=== PATIENT | female | born 1990 | race Caucasian/White ===

== ENCOUNTER 2016-10-13 19:53 | Inpatient (IN) | payer OTHER ==
[~2016-10-13] VITALS: Ht 170.2 cm; Wt 143.2 kg
[2016-10-13 21:10] LABS: BASOPHIL % 0.6 % (0-2)
[2016-10-13 21:25] LABS: ALBUMIN 4.1 g/dL (3.4-5.0); BILIRUBIN TOTAL 0.6 mg/dL (0.20-1.00); CALCIUM 8.8 mg/dL (8.5-10.1); CREATININE SERUM 1.2 mg/dL (0.6-1.0); POTASSIUM SERUM 4.5 mmol/L (3.5-5.1)
[2016-10-13 21:27] LABS: TOTAL PROTEIN, SERUM 9.1 g/dL (6.4-8.2)
[2016-10-13 21:29] LABS: PLATELET COUNT 495 x10^3mcL (130-400); RED CELL DISTRIBUTION WIDTH 14.7 % (11.5-14.5)
[2016-10-13 21:36] LABS: CARBON DIOXIDE 8.8 mmol/L (21-32)
[2016-10-13 23:21] LABS: CALCIUM 8.2 mg/dL (8.5-10.1); CHLORIDE SERUM 104 mmol/L (98-107); GFR1 > 60 mL/min; GLUCOSE SERUM 227 mg/dL (74-106); POTASSIUM SERUM 4.4 mmol/L (3.5-5.1); SODIUM SERUM 141 mmol/L (136-145)
[2016-10-13] MEDS ORDERED: METFORMIN HCL750 MG (23:38)
[2016-10-13] MEDS ORDERED: METFORMIN HCL750 MG PO (23:39)
[2016-10-13] MEDS ORDERED: INVOKANA100 MG (23:39)
[2016-10-13] MEDS ORDERED: JANUVIA100 M1 (23:40)
[2016-10-13 23:59] LABS: MAGNESIUM 2.1 mg/dL (1.8-2.4); PHOSPHOROUS 5.1 mg/dL (2.5-4.9)
[2016-10-14] VITALS (16 sets, daily range): BP systolic 116–155; BP diastolic 51–88
[2016-10-14] LABS: CHOLESTEROL 236 mg/dL (<200); CHOLESTEROL/HDL RATIO 9.8; HDL CHOLESTEROL 24 mg/dL (40-60); TRIGLYCERIDES 1109 mg/dL (<150)
[2016-10-14 00:04] LABS: FREE T4 1.15 ng/dL (0.76-1.46); FREE THYROXINE INDEX 2.8 ug/dL (1.4-4.5); T4(THYROXINE) 8.5 ug/dL (4.7-13.3)
[2016-10-14 00:17] LABS: T3 TOTAL 0.93 ng/mL
[2016-10-14] MEDS ORDERED: INVOKANA300 MG PO (00:17)
[2016-10-14] MEDS ORDERED: GOOD SENSE OMEP20 MG PO (00:17)
[2016-10-14] MEDS ORDERED: METFORMIN HCL850 MG PO (00:19)
[2016-10-14] MEDS ORDERED: JANUVIA100 M1 (00:19)
[2016-10-14] MEDS ORDERED: JANUVIA100 M1 PO (00:20)
[2016-10-14 00:32] LABS: AMPHETAMINE QUAL UR NONE DETECTED (NEG <=1000)
[2016-10-14 05:14] LABS: RED CELL DISTRIBUTION WIDTH 14.5 % (11.5-14.5)
[2016-10-14 05:16] LABS: PLATELET COUNT 542 x10^3mcL (130-400)
[2016-10-14 05:23] LABS: CALCIUM 7.4 mg/dL (8.5-10.1); CHLORIDE SERUM 110 mmol/L (98-107); CREATININE SERUM 1.1 mg/dL (0.6-1.0); GFR1 > 60 mL/min; GLUCOSE SERUM 353 mg/dL (74-106); MAGNESIUM 2.2 mg/dL (1.8-2.4); PHOSPHOROUS 5.5 mg/dL (2.5-4.9); POTASSIUM SERUM 4.5 mmol/L (3.5-5.1); SODIUM SERUM 147 mmol/L (136-145)
[2016-10-14 05:42] LABS: BAND NEUTROPHIL 2 % (0-10); METAMYELOCTE 6 % (0-2); MONOCYTE 2 % (0-7); MYELOCYTE 1 % (0-2); SEGMENTED NEUTROPHILS 71 % (37-75)
[2016-10-14 05:44] LABS: rbc morphology (normal/abnorm) NORMAL (NORMAL)
[2016-10-14 05:47] LABS: PLATELET MORPHOLOGY FEW LARGE PLATELET
[2016-10-14 06:05] LABS: microscopic required? YES; urine erythrocyte 1+ (NEGATIVE)
[2016-10-14 08:47] LABS: CALCIUM 8.3 mg/dL (8.5-10.1); CREATININE SERUM 1.3 mg/dL (0.6-1.0); POTASSIUM SERUM 3.2 mmol/L (3.5-5.1)
[2016-10-14 09:06] LABS: CARBON DIOXIDE 9.2 mmol/L (21-32)
[2016-10-14 12:17] LABS: CALCIUM 8.1 mg/dL (8.5-10.1); CARBON DIOXIDE 13.6 mmol/L (21-32); CREATININE SERUM 1.5 mg/dL (0.6-1.0); POTASSIUM SERUM 3.1 mmol/L (3.5-5.1)
[2016-10-14 16:43] LABS: MAGNESIUM 1.8 mg/dL (1.8-2.4)
[2016-10-14 16:53] LABS: CALCIUM 8.3 mg/dL (8.5-10.1); CARBON DIOXIDE 16.8 mmol/L (21-32); CREATININE SERUM 1.4 mg/dL (0.6-1.0)
[2016-10-14 16:55] LABS: POTASSIUM SERUM 2.9 mmol/L (3.5-5.1)
[2016-10-14 17:04] LABS: PHOSPHOROUS 0.6 mg/dL (2.5-4.9)
[2016-10-14 21:29] LABS: CALCIUM 8.5 mg/dL (8.5-10.1); CARBON DIOXIDE 20.6 mmol/L (21-32); CREATININE SERUM 1.3 mg/dL (0.6-1.0); POTASSIUM SERUM 5.5 mmol/L (3.5-5.1)
[2016-10-14 21:32] LABS: MAGNESIUM 1.8 mg/dL (1.8-2.4); PHOSPHOROUS 1.2 mg/dL (2.5-4.9)
[2016-10-15] VITALS (17 sets, daily range): BP systolic 102–168; BP diastolic 49–104
[2016-10-15 01:26] LABS: CALCIUM 8.6 mg/dL (8.5-10.1); CARBON DIOXIDE 20.7 mmol/L (21-32); CREATININE SERUM 1.2 mg/dL (0.6-1.0); MAGNESIUM 1.8 mg/dL (1.8-2.4); PHOSPHOROUS 1.6 mg/dL (2.5-4.9)
[2016-10-15 01:28] LABS: POTASSIUM SERUM 2.8 mmol/L (3.5-5.1)
[2016-10-15 05:06] LABS: BASOPHIL % 0.6 % (0-2); PLATELET COUNT 282 x10^3mcL (130-400)
[2016-10-15 05:08] LABS: CALCIUM 8.6 mg/dL (8.5-10.1); CARBON DIOXIDE 23.4 mmol/L (21-32); CREATININE SERUM 1.2 mg/dL (0.6-1.0); MAGNESIUM 1.8 mg/dL (1.8-2.4); PHOSPHOROUS 1.6 mg/dL (2.5-4.9); POTASSIUM SERUM 3.4 mmol/L (3.5-5.1)
[2016-10-15 05:11] LABS: RED CELL DISTRIBUTION WIDTH 14.6 % (11.5-14.5)
[2016-10-15 08:29] LABS: CALCIUM 8.6 mg/dL (8.5-10.1); CARBON DIOXIDE 19.5 mmol/L (21-32); CHLORIDE SERUM 115 mmol/L (98-107); CREATININE SERUM 1.1 mg/dL (0.6-1.0); GFR1 > 60 mL/min; GLUCOSE SERUM 226 mg/dL (74-106); MAGNESIUM 1.8 mg/dL (1.8-2.4); POTASSIUM SERUM 3.5 mmol/L (3.5-5.1); SODIUM SERUM 150 mmol/L (136-145)
[2016-10-15 12:46] LABS: CALCIUM 8.6 mg/dL (8.5-10.1); CARBON DIOXIDE 22.6 mmol/L (21-32); CREATININE SERUM 1.2 mg/dL (0.6-1.0); MAGNESIUM 1.9 mg/dL (1.8-2.4); PHOSPHOROUS 1.3 mg/dL (2.5-4.9); POTASSIUM SERUM 3.2 mmol/L (3.5-5.1)
[2016-10-15 16:21] LABS: CALCIUM 8.6 mg/dL (8.5-10.1); CARBON DIOXIDE 20.7 mmol/L (21-32); CHLORIDE SERUM 116 mmol/L (98-107); CREATININE SERUM 1.1 mg/dL (0.6-1.0); GFR1 > 60 mL/min; GLUCOSE SERUM 217 mg/dL (74-106); MAGNESIUM 1.9 mg/dL (1.8-2.4); PHOSPHOROUS 2.6 mg/dL (2.5-4.9); POTASSIUM SERUM 3.4 mmol/L (3.5-5.1); SODIUM SERUM 151 mmol/L (136-145)
[2016-10-15 20:42] LABS: CALCIUM 8.3 mg/dL (8.5-10.1); CARBON DIOXIDE 21.4 mmol/L (21-32); CHLORIDE SERUM 117 mmol/L (98-107); CREATININE SERUM 1.1 mg/dL (0.6-1.0); GFR1 > 60 mL/min; GLUCOSE SERUM 184 mg/dL (74-106); MAGNESIUM 1.8 mg/dL (1.8-2.4); PHOSPHOROUS 1.6 mg/dL (2.5-4.9); POTASSIUM SERUM 3.5 mmol/L (3.5-5.1); SODIUM SERUM 152 mmol/L (136-145)
[2016-10-16] VITALS (13 sets, daily range): BP systolic 127–170; BP diastolic 66–91; Ht 170.2 cm; Wt 143.2 kg
[2016-10-16 00:27] LABS: CALCIUM 8.6 mg/dL (8.5-10.1); CARBON DIOXIDE 26.3 mmol/L (21-32); CHLORIDE SERUM 118 mmol/L (98-107); GFR1 > 60 mL/min; GLUCOSE SERUM 157 mg/dL (74-106); MAGNESIUM 1.9 mg/dL (1.8-2.4); PHOSPHOROUS 2.3 mg/dL (2.5-4.9); POTASSIUM SERUM 3.3 mmol/L (3.5-5.1); SODIUM SERUM 154 mmol/L (136-145)
[2016-10-16 05:25] LABS: BASOPHIL % 0.5 % (0-2); PLATELET COUNT 256 x10^3mcL (130-400)
[2016-10-16 05:28] LABS: CALCIUM 8.5 mg/dL (8.5-10.1); CARBON DIOXIDE 22.6 mmol/L (21-32); CHLORIDE SERUM 117 mmol/L (98-107); GFR1 > 60 mL/min; GLUCOSE SERUM 176 mg/dL (74-106); MAGNESIUM 1.8 mg/dL (1.8-2.4); PHOSPHOROUS 2.2 mg/dL (2.5-4.9); POTASSIUM SERUM 3.4 mmol/L (3.5-5.1); SODIUM SERUM 153 mmol/L (136-145)
[2016-10-16 05:47] LABS: RED CELL DISTRIBUTION WIDTH 14.7 % (11.5-14.5)
[2016-10-16 08:47] LABS: CALCIUM 8.7 mg/dL (8.5-10.1); CARBON DIOXIDE 25.4 mmol/L (21-32); CHLORIDE SERUM 116 mmol/L (98-107); CREATININE SERUM 0.9 mg/dL (0.6-1.0); GFR1 > 60 mL/min; GLUCOSE SERUM 159 mg/dL (74-106); MAGNESIUM 1.9 mg/dL (1.8-2.4); PHOSPHOROUS 2.1 mg/dL (2.5-4.9); POTASSIUM SERUM 3.5 mmol/L (3.5-5.1); SODIUM SERUM 152 mmol/L (136-145)
[2016-10-16 13:49] LABS: CALCIUM 8.9 mg/dL (8.5-10.1); CARBON DIOXIDE 25.4 mmol/L (21-32); CHLORIDE SERUM 116 mmol/L (98-107); CREATININE SERUM 0.9 mg/dL (0.6-1.0); GFR1 > 60 mL/min; GLUCOSE SERUM 163 mg/dL (74-106); MAGNESIUM 1.9 mg/dL (1.8-2.4); PHOSPHOROUS 2.2 mg/dL (2.5-4.9); POTASSIUM SERUM 3.1 mmol/L (3.5-5.1); SODIUM SERUM 152 mmol/L (136-145)
[2016-10-17 03:24] VITALS: BP 152/91
[2016-10-17 04:56] LABS: CALCIUM 8.5 mg/dL (8.5-10.1); CARBON DIOXIDE 17.2 mmol/L (21-32); CHLORIDE SERUM 113 mmol/L (98-107); CREATININE SERUM 0.8 mg/dL (0.6-1.0); GFR1 > 60 mL/min; GLUCOSE SERUM 148 mg/dL (74-106); MAGNESIUM 1.6 mg/dL (1.8-2.4); PHOSPHOROUS 3.9 mg/dL (2.5-4.9); POTASSIUM SERUM 3.3 mmol/L (3.5-5.1); SODIUM SERUM 150 mmol/L (136-145)
[2016-10-17 05:22] LABS: BASOPHIL % 0.5 % (0-2); PLATELET COUNT 231 x10^3mcL (130-400); RED CELL DISTRIBUTION WIDTH 14.5 % (11.5-14.5)
[2016-10-17 07:35] VITALS: BP 131/87
[2016-10-17 07:38] LABS: CALCIUM 8.3 mg/dL (8.5-10.1); CARBON DIOXIDE 15.1 mmol/L (21-32); CHLORIDE SERUM 113 mmol/L (98-107); CREATININE SERUM 0.8 mg/dL (0.6-1.0); GFR1 > 60 mL/min; GLUCOSE SERUM 157 mg/dL (74-106); MAGNESIUM 1.7 mg/dL (1.8-2.4); PHOSPHOROUS 4.3 mg/dL (2.5-4.9); SODIUM SERUM 149 mmol/L (136-145)
[2016-10-17 12:33] VITALS: BP 153/91
[2016-10-17 12:39] LABS: CALCIUM 8.8 mg/dL (8.5-10.1); CARBON DIOXIDE 15.9 mmol/L (21-32); CHLORIDE SERUM 110 mmol/L (98-107); CREATININE SERUM 0.8 mg/dL (0.6-1.0); GFR1 > 60 mL/min; GLUCOSE SERUM 166 mg/dL (74-106); MAGNESIUM 1.7 mg/dL (1.8-2.4); PHOSPHOROUS 4.1 mg/dL (2.5-4.9); POTASSIUM SERUM 3.7 mmol/L (3.5-5.1); SODIUM SERUM 143 mmol/L (136-145)
[2016-10-17 16:59] LABS: CALCIUM 8.7 mg/dL (8.5-10.1); CARBON DIOXIDE 17.8 mmol/L (21-32); CHLORIDE SERUM 108 mmol/L (98-107); CREATININE SERUM 0.8 mg/dL (0.6-1.0); GFR1 > 60 mL/min; GLUCOSE SERUM 153 mg/dL (74-106); MAGNESIUM 1.7 mg/dL (1.8-2.4); PHOSPHOROUS 4.2 mg/dL (2.5-4.9); POTASSIUM SERUM 3.7 mmol/L (3.5-5.1); SODIUM SERUM 143 mmol/L (136-145)
[2016-10-17 17:43] VITALS: BP 122/73
[2016-10-17 21:22] VITALS: BP 124/67
[2016-10-17 21:42] LABS: CALCIUM 8.8 mg/dL (8.5-10.1); CARBON DIOXIDE 14.9 mmol/L (21-32); CHLORIDE SERUM 106 mmol/L (98-107); CREATININE SERUM 0.8 mg/dL (0.6-1.0); GFR1 > 60 mL/min; GLUCOSE SERUM 211 mg/dL (74-106); MAGNESIUM 2.6 mg/dL (1.8-2.4); PHOSPHOROUS 4.3 mg/dL (2.5-4.9); POTASSIUM SERUM 3.8 mmol/L (3.5-5.1); SODIUM SERUM 140 mmol/L (136-145)
[2016-10-18 01:18] LABS: CALCIUM 8.8 mg/dL (8.5-10.1); CARBON DIOXIDE 14.9 mmol/L (21-32); CHLORIDE SERUM 106 mmol/L (98-107); CREATININE SERUM 0.7 mg/dL (0.6-1.0); GFR1 > 60 mL/min; GLUCOSE SERUM 174 mg/dL (74-106); MAGNESIUM 2.2 mg/dL (1.8-2.4); POTASSIUM SERUM 4.7 mmol/L (3.5-5.1); SODIUM SERUM 139 mmol/L (136-145)
[2016-10-18 05:47] VITALS: BP 135/76
[2016-10-18 06:19] LABS: CALCIUM 8.5 mg/dL (8.5-10.1); CARBON DIOXIDE 14.8 mmol/L (21-32); CHLORIDE SERUM 106 mmol/L (98-107); CREATININE SERUM 0.8 mg/dL (0.6-1.0); GFR1 > 60 mL/min; GLUCOSE SERUM 163 mg/dL (74-106); MAGNESIUM 1.9 mg/dL (1.8-2.4); PHOSPHOROUS 3.9 mg/dL (2.5-4.9); POTASSIUM SERUM 3.6 mmol/L (3.5-5.1); SODIUM SERUM 140 mmol/L (136-145)
[2016-10-18 06:32] LABS: BASOPHIL % 0.5 % (0-2); PLATELET COUNT 252 x10^3mcL (130-400); RED CELL DISTRIBUTION WIDTH 14.2 % (11.5-14.5)
[2016-10-18 08:44] LABS: CALCIUM 8.5 mg/dL (8.5-10.1); CARBON DIOXIDE 11.7 mmol/L (21-32); CHLORIDE SERUM 110 mmol/L (98-107); CREATININE SERUM 0.8 mg/dL (0.6-1.0); GFR1 > 60 mL/min; GLUCOSE SERUM 187 mg/dL (74-106); MAGNESIUM 1.8 mg/dL (1.8-2.4); PHOSPHOROUS 3.6 mg/dL (2.5-4.9); POTASSIUM SERUM 4.3 mmol/L (3.5-5.1); SODIUM SERUM 141 mmol/L (136-145)
[2016-10-18 09:20] VITALS: BP 145/76
[2016-10-18 13:18] VITALS: BP 149/78
[2016-10-18 14:12] LABS: CALCIUM 8.7 mg/dL (8.5-10.1); CARBON DIOXIDE 13.5 mmol/L (21-32); CHLORIDE SERUM 106 mmol/L (98-107); CREATININE SERUM 0.8 mg/dL (0.6-1.0); GFR1 > 60 mL/min; GLUCOSE SERUM 186 mg/dL (74-106); MAGNESIUM 1.8 mg/dL (1.8-2.4); PHOSPHOROUS 3.8 mg/dL (2.5-4.9); POTASSIUM SERUM 4.1 mmol/L (3.5-5.1); SODIUM SERUM 138 mmol/L (136-145)
[2016-10-18 17:15] VITALS: BP 133/76
[2016-10-18 21:28] VITALS: BP 123/75
[2016-10-19 05:26] VITALS: BP 133/73
[2016-10-19 06:21] LABS: CARBON DIOXIDE 12.7 mmol/L (21-32); CHLORIDE SERUM 107 mmol/L (98-107); CREATININE SERUM 0.9 mg/dL (0.6-1.0); GFR1 > 60 mL/min; GLUCOSE SERUM 189 mg/dL (74-106); MAGNESIUM 1.9 mg/dL (1.8-2.4); PHOSPHOROUS 3.9 mg/dL (2.5-4.9); POTASSIUM SERUM 3.6 mmol/L (3.5-5.1); SODIUM SERUM 143 mmol/L (136-145)
[2016-10-19 08:40] LABS: BASOPHIL % 0.7 % (0-2); PLATELET COUNT 299 x10^3mcL (130-400); RED CELL DISTRIBUTION WIDTH 14.6 % (11.5-14.5)
[2016-10-19 08:45] VITALS: BP 133/73
[2016-10-19 10:00] VITALS: BP 122/65
[2016-10-19 13:37] LABS: CARBON DIOXIDE 17.5 mmol/L (21-32); CHLORIDE SERUM 103 mmol/L (98-107); CREATININE SERUM 0.8 mg/dL (0.6-1.0); GFR1 > 60 mL/min; GLUCOSE SERUM 215 mg/dL (74-106); MAGNESIUM 1.7 mg/dL (1.8-2.4); PHOSPHOROUS 3.1 mg/dL (2.5-4.9); POTASSIUM SERUM 3.5 mmol/L (3.5-5.1); SODIUM SERUM 138 mmol/L (136-145)
[2016-10-19 14:47] VITALS: BP 120/74
[2016-10-19 17:53] LABS: CALCIUM 8.9 mg/dL (8.5-10.1); CARBON DIOXIDE 16.4 mmol/L (21-32); CHLORIDE SERUM 105 mmol/L (98-107); CREATININE SERUM 0.8 mg/dL (0.6-1.0); GFR1 > 60 mL/min; GLUCOSE SERUM 183 mg/dL (74-106); MAGNESIUM 1.5 mg/dL (1.8-2.4); PHOSPHOROUS 3.1 mg/dL (2.5-4.9); POTASSIUM SERUM 3.6 mmol/L (3.5-5.1); SODIUM SERUM 141 mmol/L (136-145)
[2016-10-19 18:01] VITALS: BP 123/77
[2016-10-19 21:58] VITALS: BP 117/59
[2016-10-20 05:41] VITALS: BP 116/73
[2016-10-20 06:43] LABS: BASOPHIL % 0.6 % (0-2); PLATELET COUNT 295 x10^3mcL (130-400)
[2016-10-20 07:02] LABS: CALCIUM 8.6 mg/dL (8.5-10.1); CARBON DIOXIDE 19.5 mmol/L (21-32); CHLORIDE SERUM 107 mmol/L (98-107); CREATININE SERUM 0.7 mg/dL (0.6-1.0); GFR1 > 60 mL/min; GLUCOSE SERUM 200 mg/dL (74-106); PHOSPHOROUS 3.4 mg/dL (2.5-4.9); POTASSIUM SERUM 3.5 mmol/L (3.5-5.1); SODIUM SERUM 143 mmol/L (136-145)
[2016-10-20 08:37] LABS: MAGNESIUM 2.1 mg/dL (1.8-2.4); PHOSPHOROUS 3.3 mg/dL (2.5-4.9)
[2016-10-20 08:49] VITALS: BP 132/63
[2016-10-20 09:20] VITALS: BP 109/71
[2016-10-20 13:48] LABS: CALCIUM 8.7 mg/dL (8.5-10.1); CARBON DIOXIDE 22.6 mmol/L (21-32); CHLORIDE SERUM 105 mmol/L (98-107); CREATININE SERUM 0.7 mg/dL (0.6-1.0); GFR1 > 60 mL/min; GLUCOSE SERUM 279 mg/dL (74-106); POTASSIUM SERUM 3.6 mmol/L (3.5-5.1); SODIUM SERUM 140 mmol/L (136-145)
[2016-10-20] MEDS ORDERED: CLINDAMYCIN HC300 MG PO (15:14)
[2016-10-20] MEDS ORDERED: LAC PO (15:15)
[2016-10-20] MEDS ORDERED: LOP600 PO (15:17)
[2016-10-20] MEDS ORDERED: LEVEMIR100 U/M1 SQ (15:17)
[2016-10-20] MEDS ORDERED: METOPROLOL TART25 M1 PO (15:18)
[2016-10-20] MEDS ORDERED: ATORVASTATIN CA40 M1 PO (15:18)
[2016-10-20 17:04] VITALS: BP 123/82
[2016-10-20] MEDS ORDERED: ASPIR 8181 MG PO (22:48)
== END 2016-10-20 18:30 | disposition home or self-care (01) | DRG 420 ==
LOC: ED 19:53 → DU 10-14 → IC 10-14 → DU 10-17 13:30 → MU 10-20 11:29
PROVIDERS: Emergency Medicine; Family Medicine; ADMIT Family Medicine
PROC: 5A1945Z Respiratory Ventilation, 24-96 Consecutive Hours (ICD-10-PCS; principal; 2016-10-14)
PROC: 0BH17EZ Insertion of Endotracheal Airway into Trachea, Via Natural or Artificial Opening (ICD-10-PCS; 2016-10-14)
PROC: 02HV33Z Insertion of Infusion Device into Superior Vena Cava, Percutaneous Approach (ICD-10-PCS; 2016-10-14)
DX: E13.10 Other specified diabetes mellitus with ketoacidosis without coma (principal); J96.00 Acute respiratory failure, unspecified whether with hypoxia or hypercapnia; N17.0 Acute kidney failure with tubular necrosis; J69.0 Pneumonitis due to inhalation of food and vomit; K85.90 Acute pancreatitis without necrosis or infection, unspecified; E87.4 Mixed disorder of acid-base balance; E87.0 Hyperosmolality and hypernatremia; Z68.42 Body mass index [BMI] 45.0-49.9, adult; D68.69 Other thrombophilia; E83.39 Other disorders of phosphorus metabolism; Z79.84 Long term (current) use of oral hypoglycemic drugs; E11.43 Type 2 diabetes mellitus with diabetic autonomic (poly)neuropathy; K31.84 Gastroparesis; D72.829 Elevated white blood cell count, unspecified; R74.0 Nonspecific elevation of levels of transaminase and lactic acid dehydrogenase [LDH]; K76.0 Fatty (change of) liver, not elsewhere classified; E78.1 Pure hyperglyceridemia; E87.6 Hypokalemia; E11.51 Type 2 diabetes mellitus with diabetic peripheral angiopathy without gangrene; E66.2 Morbid (severe) obesity with alveolar hypoventilation; R80.9 Proteinuria, unspecified; E28.2 Polycystic ovarian syndrome; Z78.1 Physical restraint status; Z79.4 Long term (current) use of insulin; Z79.899 Other long term (current) drug therapy; Z91.14 Patient's other noncompliance with medication regimen
CPT/HCPCS: 36556; 36600; 82962; 83880; 84439; 94150; A4628; C9113; J0330; J1170; J1642; J1644; J1815; J1940; J1956; J2060; J2250; J2270; J2405; J2543; J2704; J2765; J3010; J3475; J3480; J3490; J7030; J7040; J7042; J7050; J7620; Q0092; Q9967

== ENCOUNTER 2019-05-27 12:05 | Emergency (ER) | payer BC ==
[~2019-05-27] VITALS: Ht 170.2 cm; Wt 146.1 kg
[~2019-05-27 12:05] MED LIST: ASPIR 8181 MG PO; ATORVASTATIN CA40 M1 PO; CLINDAMYCIN HC300 MG PO; GOOD SENSE OMEP20 MG PO; INVOKANA100 MG; INVOKANA300 MG PO; JANUVIA100 M1; JANUVIA100 M1 PO; LAC PO; LEVEMIR100 U/M1 SQ; LOP600 PO; METFORMIN HCL750 MG; METFORMIN HCL750 MG PO; METFORMIN HCL850 MG PO; METOPROLOL TART25 M1 PO
[2019-05-27 12:34] VITALS: Ht 170.2 cm; Wt 146.1 kg
[2019-05-27 12:50] LABS: BASOPHIL % 0.1 % (0-2); PLATELET COUNT 290 x10^3mcL (130-400); RED CELL DISTRIBUTION WIDTH 13.6 % (11.5-14.5)
[2019-05-27 13:59] LABS: CHLORIDE SERUM 98 mmol/L (98-107); POTASSIUM SERUM 3.7 mmol/L (3.5-5.1); SODIUM SERUM 134 mmol/L (136-145)
[2019-05-27 14:00] LABS: CARBON DIOXIDE 24 mmol/L (21-32); GLUCOSE SERUM 276 mg/dL (74-106)
[2019-05-27 14:01] LABS: ALBUMIN 3.7 g/dL (3.4-5.0); CREATININE SERUM 0.6 mg/dL (0.6-1.0); GFR1 > 60 mL/min; TOTAL PROTEIN, SERUM 7.6 g/dL (6.4-8.2)
[2019-05-27 14:02] LABS: ALKALINE PHOSPHATASE 62 U/L (46-116); ALT/SGPT 69 U/L (14-59); AST/SGOT 67 U/L (15-37); BILIRUBIN TOTAL 1.3 mg/dL (0.20-1.00); CALCIUM 8.5 mg/dL (8.5-10.1); LIPASE 116 IU/L (73-393)
[2019-05-27 15:47] VITALS: BP 112/64
== END 2019-05-27 15:47 | disposition home or self-care (01) ==
LOC: ED 12:05
DX: E86.0 Dehydration (principal); R11.2 Nausea with vomiting, unspecified; I10 Essential (primary) hypertension; E11.9 Type 2 diabetes mellitus without complications
CPT/HCPCS: 87804; J1885; J7030; Q0162